=== PATIENT | female | born 1965 | race Caucasian/White ===

== ENCOUNTER 2019-10-17 23:53 | Emergency (ER) | payer MEDICAID ==
[~2019-10-17 23:53] MED LIST: DIVA500T52 PO; FLUD25I IM; HYDR50CA9 PO; QUET50TA15 PO
== END 2019-10-18 01:30 | disposition left against medical advice (07) ==
LOC: EMS 23:53
DX: Z11.59 Encounter for screening for other viral diseases (principal); Z53.21 Procedure and treatment not carried out due to patient leaving prior to being seen by health care provider

== ENCOUNTER 2019-10-20 18:01 | Inpatient (IN) | payer MEDICAID ==
[~2019-10-20] VITALS: Ht 160 cm; Wt 106.6 kg
[2019-10-20] MEDS ORDERED: LORazepam 2 MG/ML VIAL IM ONE (18:45)
[2019-10-20] MEDS ORDERED: HALOPERIDOL LACTATE 5 MG/ML VIAL IM ONE (18:45)
[2019-10-20] MEDS ORDERED: DiphenhydrAMINE HCL 50 MG/ML VIAL IM ONE (18:45)
[2019-10-20 20:25] LABS: BASOPHILS % (AUTO) 0.6 % (0.0-2.0); EOSINOPHILS % (AUTO) 3.5 % (1.0-6.0); HEMATOCRIT 35.1 % (36-46); HEMOGLOBIN 11.9 g/dL (12.0-16.0); MEAN CORPUSCULAR HGB CONC 33.9 G/dL (31.0-37.0); MEAN CORPUSCULAR VOLUME 86 fL (80-100); MONOCYTES # (AUTO) 0.7 K/uL (0.1-1.0); MONOCYTES % (AUTO) 7.1 % (2.0-9.0); NEUTROPHILS # (AUTO) 6.3 K/uL (1.8-7.7); NEUTROPHILS % (AUTO) 67.8 % (40.0-70.0); PLATELET COUNT (AUTO) 305 K/uL (150-450); RED CELL DISTRIBUTION WIDTH 13.8 % (11.5-14.5)
[2019-10-20 20:33] LABS: ANION GAP 12 mmol/L (8-16); CARBON DIOXIDE 24 mmol/L (22-29); CHLORIDE 108 mmol/L (98-107); CREATININE 0.78 mg/dL (0.60-1.30); GLOMERULAR FILTR. RATE CALC > 60 mL/min (>60); GLUCOSE,RANDOM 89 mg/dL (70-110); POTASSIUM 3.5 mmol/L (3.5-5.1); SODIUM SERUM 144 mmol/L (136-145); UREA NITROGEN, BLOOD 15 mg/dL (7-18)
[2019-10-20 20:39] LABS: ALANINE AMINOTRANSFERASE 30 U/L (12-78); ALBUMIN 4.3 g/dL (3.4-5.0); ALKALINE PHOSPHATASE 63 U/L (46-116); ASPARTATE AMINOTRANSFERASE 56 U/L (15-37); BILIRUBIN,TOTAL 0.5 mg/dL (0.1-1.0); CALCIUM, TOTAL 9.6 mg/dL (8.8-10.5); TOTAL PROTEIN, SERUM 7.5 g/dL (6.4-8.2)
[2019-10-20 22:29] LABS: THYROID STIMULATING HORMONE 4.35 uIU/mL (0.36-3.74)
[2019-10-21 00:25] VITALS: BP 115/60
[2019-10-21 08:13] VITALS: BP 110/59
[2019-10-21] MEDS ORDERED: NICOTINE 14 MG/24 HOUR PATCH TD PRN (08:15)
[2019-10-21] MEDS ORDERED: CloNIDine HCL 0.1 MG TABLET PO PRN (08:15)
[2019-10-21] MEDS ORDERED: DOCUSATE SODIUM 100 MG CAPSULE PO PRN (08:15)
[2019-10-21] MEDS ORDERED: ONDANSETRON HCL 4 MG TABLET PO PRN (08:15)
[2019-10-21] MEDS ORDERED: GuaiFENesin/D-METHORPHAN [SUGAR-FREE] 200-20MG/10 ML SYRUP UDCUP PO PRN (08:15)
[2019-10-21] MEDS ORDERED: PETROLATUM,WHITE 28 GM JELLY TP PRN (08:15)
[2019-10-21] MEDS ORDERED: MAGNESIUM HYDROXIDE SUSPENSION 30 ML UDCUP PO PRN (08:15)
[2019-10-21] MEDS ORDERED: LOPERAMIDE HCL 2 MG CAPSULE PO PRN (08:15)
[2019-10-21] MEDS ORDERED: ALBUTEROL SULFATE HFA 90 MCG/PUFF 8 GM INHALER IH PRN (08:15)
[2019-10-21] MEDS: BACITRACIN 28.4 GM OINTMENT TP SCH ×2 (08:22→17:00)
[2019-10-21 09:19] LABS: CHOL/HDL RATIO 3.5 (3.9-5.7)
[2019-10-21] MEDS: FluPHENAZine HCL 5 MG TABLET PO SCH ×2 (09:24→20:46)
[2019-10-21] MEDS: DIVALPROEX SODIUM 500 MG ER TABLET PO SCH ×2 (09:24→20:46)
[2019-10-21 21:13] VITALS: BP 111/65
[2019-10-22 02:41] VITALS: BP 101/62
[2019-10-22 08:11] VITALS: BP 112/61
[2019-10-22] MEDS: DIVALPROEX SODIUM 500 MG ER TABLET PO SCH ×2 (08:32→20:31)
[2019-10-22] MEDS: FluPHENAZine HCL 5 MG TABLET PO SCH ×2 (08:32→20:32)
[2019-10-22] MEDS: BACITRACIN 28.4 GM OINTMENT TP SCH ×2 (09:05→17:44)
[2019-10-22] MEDS: LORazepam 2 MG TABLET PO PRN (09:05)
[2019-10-22 16:15] VITALS: BP 117/79
[2019-10-22] MEDS: ACETAMINOPHEN 325 MG TABLET PO PRN (22:10)
[2019-10-23 05:48] VITALS: BP 113/62
[2019-10-23] MEDS: BACITRACIN 28.4 GM OINTMENT TP SCH ×2 (08:06→16:05)
[2019-10-23] MEDS: DIVALPROEX SODIUM 500 MG ER TABLET PO SCH ×2 (08:06→20:08)
[2019-10-23] MEDS: FluPHENAZine HCL 5 MG TABLET PO SCH ×2 (08:06→20:08)
[2019-10-23 08:11] VITALS: BP 108/50
[2019-10-23 16:58] VITALS: BP 150/88
[2019-10-23] MEDS: ZOLPIDEM TARTRATE 10 MG TABLET PO PRN (20:14)
[2019-10-24 05:42] VITALS: BP 121/61
[2019-10-24] MEDS: ACETAMINOPHEN 325 MG TABLET PO PRN (06:45)
[2019-10-24 08:13] VITALS: BP 116/71
[2019-10-24] MEDS: DIVALPROEX SODIUM 500 MG ER TABLET PO SCH ×2 (08:27→20:53)
[2019-10-24] MEDS: FluPHENAZine HCL 5 MG TABLET PO SCH ×2 (08:27→20:53)
[2019-10-24] MEDS: BACITRACIN 28.4 GM OINTMENT TP SCH ×2 (08:27→16:41)
[2019-10-24 16:40] VITALS: BP 130/74
[2019-10-24] MEDS: IBUPROFEN 400 MG TABLET PO PRN (17:28)
[2019-10-24] MEDS: MAG HYDROX/AL HYDROX/SIMETH ES 30 ML SUSPENSION UDCUP PO PRN (20:57)
[2019-10-25 03:51] VITALS: BP 120/68
[2019-10-25] MEDS: FluPHENAZine HCL 5 MG TABLET PO SCH ×2 (08:12→20:39)
[2019-10-25] MEDS: DIVALPROEX SODIUM 500 MG ER TABLET PO SCH ×2 (08:12→20:39)
[2019-10-25] MEDS: BACITRACIN 28.4 GM OINTMENT TP SCH ×2 (08:12→17:00)
[2019-10-25 08:20] VITALS: BP 113/69
[2019-10-25] MEDS: ZOLPIDEM TARTRATE 10 MG TABLET PO PRN (22:11)
[2019-10-26 03:40] VITALS: BP 105/66
[2019-10-26] MEDS: LORazepam 2 MG TABLET PO PRN (06:50)
[2019-10-26 08:21] VITALS: BP 152/84
[2019-10-26] MEDS: FluPHENAZine HCL 5 MG TABLET PO SCH ×2 (08:30→20:26)
[2019-10-26] MEDS: DIVALPROEX SODIUM 500 MG ER TABLET PO SCH ×2 (08:30→20:26)
[2019-10-26] MEDS: BACITRACIN 28.4 GM OINTMENT TP SCH ×2 (08:30→16:59)
[2019-10-26] MEDS: ACETAMINOPHEN 325 MG TABLET PO PRN (13:21)
[2019-10-26 16:08] VITALS: BP 126/74
[2019-10-26 17:55] VITALS: BP 118/70
[2019-10-26] MEDS: IBUPROFEN 400 MG TABLET PO PRN (17:55)
[2019-10-26] MEDS: ZOLPIDEM TARTRATE 10 MG TABLET PO PRN (22:33)
[2019-10-27 04:05] VITALS: BP 110/66
[2019-10-27] MEDS: LORazepam 2 MG TABLET PO PRN ×3 (06:46→15:54)
[2019-10-27 08:38] VITALS: BP 107/66
[2019-10-27] MEDS: DIVALPROEX SODIUM 500 MG ER TABLET PO SCH ×2 (09:18→20:20)
[2019-10-27] MEDS: FluPHENAZine HCL 5 MG TABLET PO SCH ×2 (09:18→20:20)
[2019-10-27] MEDS: BACITRACIN 28.4 GM OINTMENT TP SCH ×2 (09:18→16:26)
[2019-10-27] MEDS: MULTIVITAMINS WITH IRON TABLET PO SCH (09:18)
[2019-10-27] MEDS ORDERED: TUBERCULIN, PURIFIED PROTEIN DERIVATIVE 5 TU/0.1 ML SYRINGE ID ONE (11:30)
[2019-10-27 16:13] VITALS: BP 136/91
[2019-10-27] MEDS: HALOPERIDOL 5 MG TABLET PO PRN (18:13)
[2019-10-27] MEDS: ZOLPIDEM TARTRATE 10 MG TABLET PO PRN (20:20)
[2019-10-28 04:10] VITALS: BP 125/80
[2019-10-28] MEDS: DIVALPROEX SODIUM 500 MG ER TABLET PO SCH ×2 (08:07→20:13)
[2019-10-28] MEDS: MULTIVITAMINS WITH IRON TABLET PO SCH (08:07)
[2019-10-28] MEDS: BACITRACIN 28.4 GM OINTMENT TP SCH ×2 (08:07→16:08)
[2019-10-28] MEDS: LORazepam 2 MG TABLET PO PRN ×2 (08:07→15:45)
[2019-10-28] MEDS: FluPHENAZine HCL 5 MG TABLET PO SCH ×2 (08:07→20:13)
[2019-10-28 10:03] VITALS: BP 110/63
[2019-10-28 12:18] VITALS: BP 111/59
[2019-10-28] MEDS: ACETAMINOPHEN 325 MG TABLET PO PRN (12:18)
[2019-10-28] MEDS: HALOPERIDOL 5 MG TABLET PO PRN (12:18)
[2019-10-28 17:49] VITALS: BP 117/86
[2019-10-28] MEDS: ZOLPIDEM TARTRATE 10 MG TABLET PO PRN (20:17)
[2019-10-29 01:26] VITALS: BP 120/74
[2019-10-29] MEDS: FluPHENAZine HCL 5 MG TABLET PO SCH ×2 (08:09→20:01)
[2019-10-29] MEDS: MULTIVITAMINS WITH IRON TABLET PO SCH (08:10)
[2019-10-29] MEDS: BACITRACIN 28.4 GM OINTMENT TP SCH ×2 (08:10→15:59)
[2019-10-29] MEDS: DIVALPROEX SODIUM 500 MG ER TABLET PO SCH ×2 (08:10→20:02)
[2019-10-29 08:24] VITALS: BP 138/65
[2019-10-29] MEDS: LORazepam 2 MG TABLET PO PRN (14:45)
[2019-10-29] MEDS: HALOPERIDOL 5 MG TABLET PO PRN (15:58)
[2019-10-29 16:14] VITALS: BP 118/60
[2019-10-29] MEDS: ZOLPIDEM TARTRATE 10 MG TABLET PO PRN (22:25)
[2019-10-29] MEDS ORDERED: TUBERCULIN, PURIFIED PROTEIN DERIVATIVE 5 TU/0.1 ML SYRINGE ID ONE (22:30)
[2019-10-30 01:45] VITALS: BP 114/65
[2019-10-30] MEDS: MULTIVITAMINS WITH IRON TABLET PO SCH (08:19)
[2019-10-30] MEDS: FluPHENAZine HCL 5 MG TABLET PO SCH ×2 (08:19→20:55)
[2019-10-30] MEDS: DIVALPROEX SODIUM 500 MG ER TABLET PO SCH ×2 (08:19→20:55)
[2019-10-30] MEDS: BACITRACIN 28.4 GM OINTMENT TP SCH ×2 (08:19→17:00)
[2019-10-30 08:25] VITALS: BP 144/87
[2019-10-30] MEDS: MAG HYDROX/AL HYDROX/SIMETH ES 30 ML SUSPENSION UDCUP PO PRN (14:44)
[2019-10-30 16:21] VITALS: BP 141/77
[2019-10-30] MEDS: ZOLPIDEM TARTRATE 10 MG TABLET PO PRN (20:55)
[2019-10-31 03:56] VITALS: BP 135/78
[2019-10-31] MEDS: ACETAMINOPHEN 325 MG TABLET PO PRN (04:53)
[2019-10-31 04:54] VITALS: BP 148/78
[2019-10-31] MEDS: LORazepam 2 MG TABLET PO PRN ×2 (04:54→16:58)
[2019-10-31] MEDS: BACITRACIN 28.4 GM OINTMENT TP SCH ×2 (10:09→16:30)
[2019-10-31] MEDS: FluPHENAZine HCL 5 MG TABLET PO SCH ×2 (10:09→20:35)
[2019-10-31] MEDS: MULTIVITAMINS WITH IRON TABLET PO SCH (10:09)
[2019-10-31] MEDS: DIVALPROEX SODIUM 500 MG ER TABLET PO SCH ×2 (10:09→20:35)
[2019-10-31 16:24] VITALS: BP 109/71
[2019-11-01 03:00] VITALS: BP 110/70
[2019-11-01] MEDS: LORazepam 2 MG TABLET PO PRN ×2 (03:05→12:15)
[2019-11-01] MEDS: FluPHENAZine HCL 5 MG TABLET PO SCH ×2 (08:37→21:09)
[2019-11-01] MEDS: MULTIVITAMINS WITH IRON TABLET PO SCH (08:37)
[2019-11-01] MEDS: DIVALPROEX SODIUM 500 MG ER TABLET PO SCH ×2 (08:37→21:09)
[2019-11-01] MEDS: BACITRACIN 28.4 GM OINTMENT TP SCH ×2 (08:38→17:00)
[2019-11-02 04:47] VITALS: BP 108/70
[2019-11-02] MEDS: ACETAMINOPHEN 325 MG TABLET PO PRN (05:35)
[2019-11-02] MEDS: DIVALPROEX SODIUM 500 MG ER TABLET PO SCH ×2 (08:10→21:05)
[2019-11-02] MEDS: MULTIVITAMINS WITH IRON TABLET PO SCH (08:10)
[2019-11-02] MEDS: FluPHENAZine HCL 5 MG TABLET PO SCH ×2 (08:10→21:05)
[2019-11-02] MEDS: BACITRACIN 28.4 GM OINTMENT TP SCH ×2 (08:10→16:59)
[2019-11-02 16:13] VITALS: BP 124/66
[2019-11-03 02:13] VITALS: BP 118/65
[2019-11-03] MEDS: FluPHENAZine HCL 5 MG TABLET PO SCH ×2 (08:57→20:43)
[2019-11-03] MEDS: MULTIVITAMINS WITH IRON TABLET PO SCH (08:57)
[2019-11-03] MEDS: DIVALPROEX SODIUM 500 MG ER TABLET PO SCH ×2 (08:57→20:43)
[2019-11-03] MEDS: BACITRACIN 28.4 GM OINTMENT TP SCH ×2 (08:57→17:29)
[2019-11-03] MEDS: IBUPROFEN 400 MG TABLET PO PRN ×2 (12:05→21:06)
[2019-11-03] MEDS: LORazepam 2 MG TABLET PO PRN (14:29)
[2019-11-03 16:21] VITALS: BP 126/74
[2019-11-03] MEDS: ZOLPIDEM TARTRATE 10 MG TABLET PO PRN (22:12)
[2019-11-04 01:53] VITALS: BP 122/67
[2019-11-04] MEDS: BACITRACIN 28.4 GM OINTMENT TP SCH ×2 (08:31→16:32)
[2019-11-04] MEDS: FluPHENAZine HCL 5 MG TABLET PO SCH ×2 (08:32→20:29)
[2019-11-04] MEDS: DIVALPROEX SODIUM 500 MG ER TABLET PO SCH ×2 (08:32→20:29)
[2019-11-04] MEDS: MULTIVITAMINS WITH IRON TABLET PO SCH (08:32)
[2019-11-04 09:25] VITALS: BP 118/80
[2019-11-04] MEDS: IBUPROFEN 400 MG TABLET PO PRN ×2 (09:25→18:32)
[2019-11-04] MEDS: LORazepam 2 MG TABLET PO PRN ×2 (10:28→17:08)
[2019-11-04 16:33] VITALS: BP 123/74
[2019-11-04 18:32] VITALS: BP 128/70
[2019-11-04] MEDS: ZOLPIDEM TARTRATE 10 MG TABLET PO PRN (20:29)
[2019-11-05] MEDS: LORazepam 2 MG TABLET PO PRN ×3 (02:08→19:23)
[2019-11-05 04:50] VITALS: BP 105/65
[2019-11-05 08:13] VITALS: BP 104/64
[2019-11-05] MEDS: DIVALPROEX SODIUM 500 MG ER TABLET PO SCH ×2 (08:18→20:47)
[2019-11-05] MEDS: MULTIVITAMINS WITH IRON TABLET PO SCH (08:18)
[2019-11-05] MEDS: FluPHENAZine HCL 5 MG TABLET PO SCH ×2 (08:18→20:47)
[2019-11-05] MEDS: BACITRACIN 28.4 GM OINTMENT TP SCH ×2 (08:22→17:03)
[2019-11-05] MEDS: IBUPROFEN 400 MG TABLET PO PRN ×2 (08:52→17:28)
[2019-11-05] MEDS: MAG HYDROX/AL HYDROX/SIMETH ES 30 ML SUSPENSION UDCUP PO PRN (08:53)
[2019-11-05 16:08] VITALS: BP 114/55
[2019-11-05 17:42] VITALS: BP 109/68
[2019-11-05] MEDS: HALOPERIDOL 5 MG TABLET PO PRN (19:23)
[2019-11-06 03:35] VITALS: BP 109/58
[2019-11-06 08:11] VITALS: BP 100/59
[2019-11-06] MEDS: DIVALPROEX SODIUM 500 MG ER TABLET PO SCH ×2 (08:29→20:33)
[2019-11-06] MEDS: FluPHENAZine HCL 5 MG TABLET PO SCH ×2 (08:29→20:33)
[2019-11-06] MEDS: MULTIVITAMINS WITH IRON TABLET PO SCH (08:31)
[2019-11-06] MEDS: BACITRACIN 28.4 GM OINTMENT TP SCH ×2 (08:35→16:31)
[2019-11-06 16:07] VITALS: BP 141/71
[2019-11-06 17:23] VITALS: BP 122/76
[2019-11-06] MEDS: IBUPROFEN 400 MG TABLET PO PRN (17:23)
[2019-11-06] MEDS: HALOPERIDOL 5 MG TABLET PO PRN (19:31)
[2019-11-06] MEDS: LORazepam 2 MG TABLET PO PRN (19:31)
[2019-11-07 05:51] VITALS: BP 127/70
[2019-11-07 08:19] VITALS: BP 119/70
[2019-11-07] MEDS: BACITRACIN 28.4 GM OINTMENT TP SCH ×2 (09:00→17:00)
[2019-11-07] MEDS: FluPHENAZine HCL 5 MG TABLET PO SCH ×2 (09:39→20:33)
[2019-11-07] MEDS: MULTIVITAMINS WITH IRON TABLET PO SCH (09:39)
[2019-11-07] MEDS: DIVALPROEX SODIUM 500 MG ER TABLET PO SCH ×2 (09:39→20:32)
[2019-11-07] MEDS: IBUPROFEN 400 MG TABLET PO PRN ×2 (12:13→20:33)
[2019-11-07] MEDS: LORazepam 2 MG TABLET PO PRN (12:13)
[2019-11-07] MEDS: HALOPERIDOL 5 MG TABLET PO PRN (12:30)
[2019-11-07 16:18] VITALS: BP 105/63
[2019-11-07] MEDS: MAG HYDROX/AL HYDROX/SIMETH ES 30 ML SUSPENSION UDCUP PO PRN (18:50)
[2019-11-07] MEDS: ACETAMINOPHEN 325 MG TABLET PO PRN (18:51)
[2019-11-07] MEDS: ZOLPIDEM TARTRATE 10 MG TABLET PO PRN (20:33)
[2019-11-08 01:38] VITALS: BP 117/78
[2019-11-08] MEDS: IBUPROFEN 400 MG TABLET PO PRN ×2 (06:39→20:11)
[2019-11-08] MEDS: DIVALPROEX SODIUM 500 MG ER TABLET PO SCH ×2 (08:17→20:11)
[2019-11-08] MEDS: MULTIVITAMINS WITH IRON TABLET PO SCH (08:17)
[2019-11-08] MEDS: FluPHENAZine HCL 5 MG TABLET PO SCH ×2 (08:17→20:11)
[2019-11-08] MEDS: BACITRACIN 28.4 GM OINTMENT TP SCH ×2 (08:18→16:29)
[2019-11-08] MEDS: LORazepam 2 MG TABLET PO PRN (12:02)
[2019-11-08] MEDS: MAG HYDROX/AL HYDROX/SIMETH ES 30 ML SUSPENSION UDCUP PO PRN (13:42)
[2019-11-08] MEDS: HALOPERIDOL 5 MG TABLET PO PRN (14:10)
[2019-11-08 16:26] VITALS: BP 137/82
[2019-11-09 02:20] VITALS: BP 124/66
[2019-11-09 08:06] VITALS: BP 117/74
[2019-11-09] MEDS: LORazepam 2 MG TABLET PO PRN ×2 (08:06→17:16)
[2019-11-09] MEDS: IBUPROFEN 400 MG TABLET PO PRN ×2 (08:06→16:43)
[2019-11-09] MEDS: FluPHENAZine HCL 5 MG TABLET PO SCH ×2 (08:06→20:32)
[2019-11-09] MEDS: DIVALPROEX SODIUM 500 MG ER TABLET PO SCH ×2 (08:07→20:32)
[2019-11-09] MEDS: BACITRACIN 28.4 GM OINTMENT TP SCH ×2 (08:07→16:50)
[2019-11-09] MEDS: MULTIVITAMINS WITH IRON TABLET PO SCH (08:07)
[2019-11-09 08:23] VITALS: BP 117/74
[2019-11-09] MEDS: HALOPERIDOL 5 MG TABLET PO PRN ×2 (08:59→17:16)
[2019-11-09 16:43] VITALS: BP 105/63
[2019-11-09 16:53] VITALS: BP 105/63
[2019-11-09] MEDS: MAG HYDROX/AL HYDROX/SIMETH ES 30 ML SUSPENSION UDCUP PO PRN (18:42)
[2019-11-10 04:35] VITALS: BP 100/68
[2019-11-10] MEDS: FluPHENAZine HCL 5 MG TABLET PO SCH (08:05)
[2019-11-10] MEDS: DIVALPROEX SODIUM 500 MG ER TABLET PO SCH (08:05)
[2019-11-10] MEDS: MULTIVITAMINS WITH IRON TABLET PO SCH (08:05)
[2019-11-10 08:07] VITALS: BP 102/68
[2019-11-10] MEDS ORDERED: DIVA500T52 PO (13:42)
[2019-11-10] MEDS ORDERED: FLUP5 PO (13:43)
== END 2019-11-10 15:00 | disposition home or self-care (01) | DRG 750 ==
LOC: EMS 18:01 → B3A 19:48
PROVIDERS: ADMIT Psychiatry & Neurology Child & Adolescent Psychiatry; ATTEND Psychiatry & Neurology Child & Adolescent Psychiatry
DX: F20.0 Paranoid schizophrenia (principal); Z78.1 Physical restraint status; G40.909 Epilepsy, unspecified, not intractable, without status epilepticus; D64.9 Anemia, unspecified; E03.9 Hypothyroidism, unspecified; E78.00 Pure hypercholesterolemia, unspecified; E78.5 Hyperlipidemia, unspecified; F10.10 Alcohol abuse, uncomplicated; F43.10 Post-traumatic stress disorder, unspecified; F17.210 Nicotine dependence, cigarettes, uncomplicated; I10 Essential (primary) hypertension; Z59.0 Homelessness; Z91.5 Personal history of self-harm
CPT/HCPCS: 84439; 84443; G0480; J1200; J1630; J2060

== ENCOUNTER 2019-10-21 12:57 | Emergency (ER) | payer MEDICAID ==
[~2019-10-21] VITALS: Ht 162.6 cm; Wt 102.3 kg
[2019-10-21 17:58] VITALS: BP 111/62
== END 2019-10-21 19:55 | disposition home or self-care (01) ==
LOC: EMS 13:05
DX: F20.0 Paranoid schizophrenia (principal); R05 Cough; F32.9 Major depressive disorder, single episode, unspecified; E78.00 Pure hypercholesterolemia, unspecified; I10 Essential (primary) hypertension; F17.210 Nicotine dependence, cigarettes, uncomplicated; F14.90 Cocaine use, unspecified, uncomplicated; F12.90 Cannabis use, unspecified, uncomplicated; F19.90 Other psychoactive substance use, unspecified, uncomplicated; Z20.828 Contact with and (suspected) exposure to other viral communicable diseases

== ENCOUNTER 2019-11-14 00:57 | Inpatient (IN) | payer MEDICAID ==
[~2019-11-14] VITALS: Ht 162.6 cm; Wt 108.4 kg
[~2019-11-14 00:57] MED LIST changes: +DIVA-80 PO; -DIVA500T52 PO; -FLUD25I IM; +FLUP5 PO; -HYDR50CA9 PO; -QUET50TA15 PO
[2019-11-14 01:55] LABS: BASOPHILS % (AUTO) 0.3 % (0.0-2.0); EOSINOPHILS % (AUTO) 0.9 % (1.0-6.0); HEMATOCRIT 38.8 % (36-46); HEMOGLOBIN 13.3 g/dL (12.0-16.0); LYMPHOCYTES # (AUTO) 1.2 K/uL (1.0-4.8); LYMPHOCYTES % (AUTO) 13.4 % (22.0-44.0); MEAN CORPUSCULAR HEMOGLOBIN 29.2 pg (26.0-34.0); MEAN CORPUSCULAR HGB CONC 34.2 G/dL (31.0-37.0); MEAN CORPUSCULAR VOLUME 86 fL (80-100); NEUTROPHILS # (AUTO) 6.6 K/uL (1.8-7.7); NEUTROPHILS % (AUTO) 74.4 % (40.0-70.0); PLATELET COUNT (AUTO) 276 K/uL (150-450); RED BLOOD CELL COUNT(AUTO) 4.54 MIL/uL (4.00-5.20); RED CELL DISTRIBUTION WIDTH 13.7 % (11.5-14.5)
[2019-11-14 02:04] LABS: ANION GAP 9 mmol/L (8-16); CALCIUM, TOTAL 10.1 mg/dL (8.8-10.5); CARBON DIOXIDE 31 mmol/L (22-29); CHLORIDE 107 mmol/L (98-107); CREATININE 0.65 mg/dL (0.60-1.30); GLOMERULAR FILTR. RATE CALC > 60 mL/min (>60); GLUCOSE,RANDOM 116 mg/dL (70-110); POTASSIUM 4.9 mmol/L (3.5-5.1); SODIUM SERUM 147 mmol/L (136-145); UREA NITROGEN, BLOOD 16 mg/dL (7-18)
[2019-11-14 02:11] LABS: ALANINE AMINOTRANSFERASE 26 U/L (12-78); ALBUMIN 4.4 g/dL (3.4-5.0); ALKALINE PHOSPHATASE 60 U/L (46-116); ASPARTATE AMINOTRANSFERASE 30 U/L (15-37); BILIRUBIN,TOTAL 0.4 mg/dL (0.1-1.0); TOTAL PROTEIN, SERUM 8.1 g/dL (6.4-8.2)
[2019-11-14 05:23] VITALS: BP 114/65
[2019-11-14 08:35] VITALS: BP 118/73
[2019-11-14] MEDS: DIVALPROEX SODIUM 500 MG ER TABLET PO SCH ×2 (10:43→20:54)
[2019-11-14] MEDS: FluPHENAZine HCL 5 MG TABLET PO SCH ×2 (11:30→20:55)
[2019-11-14 16:12] VITALS: BP 125/84
[2019-11-14] MEDS: LORazepam 2 MG TABLET PO PRN (16:28)
[2019-11-14] MEDS: HALOPERIDOL 5 MG TABLET PO PRN (16:28)
[2019-11-15 01:52] VITALS: BP 114/74
[2019-11-15] MEDS: IBUPROFEN 600 MG TABLET PO PRN ×3 (06:34→21:55)
[2019-11-15 07:34] VITALS: BP 105/76
[2019-11-15 08:12] VITALS: BP 102/79
[2019-11-15] MEDS: FluPHENAZine HCL 5 MG TABLET PO SCH ×2 (08:12→20:32)
[2019-11-15] MEDS: LORazepam 2 MG TABLET PO PRN (08:12)
[2019-11-15] MEDS: DIVALPROEX SODIUM 500 MG ER TABLET PO SCH ×2 (08:13→20:32)
[2019-11-15 08:23] LABS: CHOL/HDL RATIO 4.9 (3.9-5.7)
[2019-11-15] MEDS: HALOPERIDOL 5 MG TABLET PO PRN (10:54)
[2019-11-15 14:08] VITALS: BP 110/72
[2019-11-15 15:08] VITALS: BP 111/76
[2019-11-15 16:18] VITALS: BP 119/78
[2019-11-15] MEDS: ZOLPIDEM TARTRATE 10 MG TABLET PO PRN (23:10)
[2019-11-16 02:22] VITALS: BP 103/51
[2019-11-16] MEDS: ACETAMINOPHEN 325 MG TABLET PO PRN (02:55)
[2019-11-16] MEDS: FluPHENAZine HCL 5 MG TABLET PO SCH ×2 (08:20→20:13)
[2019-11-16] MEDS: DIVALPROEX SODIUM 500 MG ER TABLET PO SCH ×2 (08:20→20:13)
[2019-11-16] MEDS: HALOPERIDOL 5 MG TABLET PO PRN (16:14)
[2019-11-16] MEDS: LORazepam 2 MG TABLET PO PRN (16:14)
[2019-11-16 16:16] VITALS: BP 121/65
[2019-11-16 17:17] VITALS: BP 133/70
[2019-11-16] MEDS: IBUPROFEN 600 MG TABLET PO PRN (17:17)
[2019-11-17 01:42] VITALS: BP 110/68
[2019-11-17] MEDS: ZOLPIDEM TARTRATE 10 MG TABLET PO PRN ×2 (01:51→22:35)
[2019-11-17] MEDS: ACETAMINOPHEN 325 MG TABLET PO PRN ×2 (07:16→17:53)
[2019-11-17] MEDS: FluPHENAZine HCL 5 MG TABLET PO SCH ×2 (08:18→20:41)
[2019-11-17] MEDS: DIVALPROEX SODIUM 500 MG ER TABLET PO SCH ×2 (08:18→20:41)
[2019-11-17 08:21] VITALS: BP 124/58
[2019-11-17] MEDS: LORazepam 2 MG TABLET PO PRN ×2 (10:09→17:08)
[2019-11-17] MEDS: NICOTINE 21 MG/24 HOUR PATCH TD SCH (11:06)
[2019-11-17 16:09] VITALS: BP 120/74
[2019-11-17] MEDS: HALOPERIDOL 5 MG TABLET PO PRN (17:08)
[2019-11-17 17:53] VITALS: BP 146/77
[2019-11-18 04:35] VITALS: BP 100/60
[2019-11-18 05:07] VITALS: BP 116/68
[2019-11-18] MEDS: LORazepam 2 MG TABLET PO PRN ×2 (05:07→13:25)
[2019-11-18] MEDS: HALOPERIDOL 5 MG TABLET PO PRN ×2 (05:07→12:29)
[2019-11-18 08:18] VITALS: BP 91/58
[2019-11-18] MEDS: FluPHENAZine HCL 5 MG TABLET PO SCH ×2 (09:29→20:40)
[2019-11-18] MEDS: DIVALPROEX SODIUM 500 MG ER TABLET PO SCH ×2 (09:29→20:40)
[2019-11-18] MEDS: NICOTINE 21 MG/24 HOUR PATCH TD SCH (09:30)
[2019-11-18 13:00] VITALS: BP 114/74
[2019-11-18 16:04] VITALS: BP 104/60
[2019-11-19 02:34] VITALS: BP 126/89
[2019-11-19] MEDS: ZOLPIDEM TARTRATE 10 MG TABLET PO PRN (02:46)
[2019-11-19] MEDS: LORazepam 2 MG TABLET PO PRN (02:46)
[2019-11-19] MEDS: DIVALPROEX SODIUM 500 MG ER TABLET PO SCH ×2 (08:16→20:24)
[2019-11-19] MEDS: NICOTINE 21 MG/24 HOUR PATCH TD SCH (08:16)
[2019-11-19] MEDS: FluPHENAZine HCL 5 MG TABLET PO SCH ×2 (08:16→20:25)
[2019-11-19 08:39] VITALS: BP 122/68
[2019-11-20 02:11] VITALS: BP 125/74
[2019-11-20] MEDS: FluPHENAZine HCL 5 MG TABLET PO SCH ×2 (08:08→20:29)
[2019-11-20] MEDS: DIVALPROEX SODIUM 500 MG ER TABLET PO SCH ×2 (08:08→20:29)
[2019-11-20] MEDS: NICOTINE 21 MG/24 HOUR PATCH TD SCH (09:00)
[2019-11-20 09:41] VITALS: BP 104/57
[2019-11-20 16:00] VITALS: BP 124/70
[2019-11-20] MEDS: HALOPERIDOL 5 MG TABLET PO PRN (16:27)
[2019-11-20] MEDS: LORazepam 2 MG TABLET PO PRN (16:27)
[2019-11-21 03:59] VITALS: BP 126/76
[2019-11-21 08:04] VITALS: BP 130/79
[2019-11-21] MEDS: LORazepam 2 MG TABLET PO PRN ×2 (08:06→13:23)
[2019-11-21] MEDS: NICOTINE 21 MG/24 HOUR PATCH TD SCH (08:06)
[2019-11-21] MEDS: FluPHENAZine HCL 5 MG TABLET PO SCH ×2 (08:06→20:19)
[2019-11-21] MEDS: DIVALPROEX SODIUM 500 MG ER TABLET PO SCH ×2 (08:06→20:19)
[2019-11-21] MEDS: HALOPERIDOL 5 MG TABLET PO PRN ×2 (09:23→17:06)
[2019-11-21] MEDS: IBUPROFEN 600 MG TABLET PO PRN (09:51)
[2019-11-21 16:35] VITALS: BP 126/76
[2019-11-21] MEDS: ACETAMINOPHEN 325 MG TABLET PO PRN (19:07)
[2019-11-21] MEDS: ZOLPIDEM TARTRATE 10 MG TABLET PO PRN (21:12)
[2019-11-22] MEDS: ACETAMINOPHEN 325 MG TABLET PO PRN (04:38)
[2019-11-22 04:42] VITALS: BP 101/73
[2019-11-22] MEDS: HALOPERIDOL 5 MG TABLET PO PRN ×3 (06:01→17:28)
[2019-11-22] MEDS: FluPHENAZine HCL 5 MG TABLET PO SCH ×2 (08:06→20:28)
[2019-11-22] MEDS: LORazepam 2 MG TABLET PO PRN ×2 (08:06→16:30)
[2019-11-22] MEDS: DIVALPROEX SODIUM 500 MG ER TABLET PO SCH ×2 (08:06→20:28)
[2019-11-22] MEDS: NICOTINE 21 MG/24 HOUR PATCH TD SCH (08:06)
[2019-11-22 08:17] VITALS: BP 102/70
[2019-11-22 16:25] VITALS: BP 128/94
[2019-11-23 04:00] VITALS: BP 126/72
[2019-11-23 08:11] LABS: ANION GAP 9 mmol/L (8-16); CALCIUM, TOTAL 9.4 mg/dL (8.8-10.5); CARBON DIOXIDE 27 mmol/L (22-29); CHLORIDE 104 mmol/L (98-107); CREATININE 0.77 mg/dL (0.60-1.30); GLOMERULAR FILTR. RATE CALC > 60 mL/min (>60); GLUCOSE,RANDOM 83 mg/dL (70-110); POTASSIUM 4.1 mmol/L (3.5-5.1); SODIUM SERUM 140 mmol/L (136-145); UREA NITROGEN, BLOOD 16 mg/dL (7-18)
[2019-11-23 08:17] VITALS: BP 127/75
[2019-11-23] MEDS: FluPHENAZine HCL 5 MG TABLET PO SCH ×2 (08:17→21:35)
[2019-11-23] MEDS: LORazepam 2 MG TABLET PO PRN (08:17)
[2019-11-23] MEDS: NICOTINE 21 MG/24 HOUR PATCH TD SCH (08:17)
[2019-11-23] MEDS: DIVALPROEX SODIUM 500 MG ER TABLET PO SCH ×2 (08:17→21:37)
[2019-11-23] MEDS: HALOPERIDOL 5 MG TABLET PO PRN (14:23)
[2019-11-23] MEDS: IBUPROFEN 600 MG TABLET PO PRN (15:00)
[2019-11-23 16:07] VITALS: BP 122/74
[2019-11-24] MEDS: LORazepam 2 MG TABLET PO PRN ×3 (03:09→17:27)
[2019-11-24 03:29] VITALS: BP 106/65
[2019-11-24 05:26] VITALS: BP 106/65
[2019-11-24 08:46] VITALS: BP 118/58
[2019-11-24] MEDS: FluPHENAZine HCL 5 MG TABLET PO SCH ×2 (09:13→20:09)
[2019-11-24] MEDS: DIVALPROEX SODIUM 500 MG ER TABLET PO SCH ×2 (09:13→20:09)
[2019-11-24] MEDS: HALOPERIDOL 5 MG TABLET PO PRN (09:13)
[2019-11-24] MEDS: NICOTINE 21 MG/24 HOUR PATCH TD SCH (09:13)
[2019-11-24] MEDS: IBUPROFEN 600 MG TABLET PO PRN (09:13)
[2019-11-24] MEDS ORDERED: HALOPERIDOL LACTATE 5 MG/ML VIAL IM ONE (10:00)
[2019-11-24] MEDS ORDERED: LORazepam 2 MG/ML VIAL IM ONE (10:00)
[2019-11-24] MEDS ORDERED: DiphenhydrAMINE HCL 50 MG/ML VIAL IM ONE (10:00)
[2019-11-24 17:52] VITALS: BP 103/64
[2019-11-25 05:10] VITALS: BP 116/66
[2019-11-25 07:21] VITALS: BP 122/67
[2019-11-25] MEDS: IBUPROFEN 600 MG TABLET PO PRN (07:30)
[2019-11-25] MEDS: DIVALPROEX SODIUM 500 MG ER TABLET PO SCH ×2 (08:11→20:35)
[2019-11-25] MEDS: LORazepam 2 MG TABLET PO PRN ×2 (08:11→17:08)
[2019-11-25] MEDS: FluPHENAZine HCL 5 MG TABLET PO SCH ×2 (08:11→20:35)
[2019-11-25] MEDS: NICOTINE 21 MG/24 HOUR PATCH TD SCH (08:11)
[2019-11-25 08:18] VITALS: BP 121/69
[2019-11-25 16:00] VITALS: BP 123/77
[2019-11-25] MEDS: HALOPERIDOL 5 MG TABLET PO PRN (17:08)
[2019-11-25] MEDS: ZOLPIDEM TARTRATE 10 MG TABLET PO PRN (20:35)
[2019-11-26 04:18] VITALS: BP 121/64
[2019-11-26 06:44] VITALS: BP 101/71
[2019-11-26] MEDS: IBUPROFEN 600 MG TABLET PO PRN (06:47)
[2019-11-26 07:18] VITALS: BP 105/66
[2019-11-26] MEDS: FluPHENAZine HCL 5 MG TABLET PO SCH ×2 (08:29→20:39)
[2019-11-26] MEDS: DIVALPROEX SODIUM 500 MG ER TABLET PO SCH ×2 (08:29→20:39)
[2019-11-26] MEDS: NICOTINE 21 MG/24 HOUR PATCH TD SCH (08:30)
[2019-11-26] MEDS: ACETAMINOPHEN 325 MG TABLET PO PRN (14:12)
[2019-11-26 16:27] VITALS: BP 135/79
[2019-11-26] MEDS: LORazepam 2 MG TABLET PO PRN ×2 (16:45→22:12)
[2019-11-26] MEDS: ZOLPIDEM TARTRATE 10 MG TABLET PO PRN (20:39)
[2019-11-27] VITALS: BP 105/69
[2019-11-27 06:35] VITALS: BP 110/74
[2019-11-27] MEDS: IBUPROFEN 600 MG TABLET PO PRN (06:38)
[2019-11-27] MEDS: LORazepam 2 MG TABLET PO PRN (06:38)
[2019-11-27 08:14] VITALS: BP 134/64
[2019-11-27] MEDS: NICOTINE 21 MG/24 HOUR PATCH TD SCH (09:31)
[2019-11-27] MEDS: DIVALPROEX SODIUM 500 MG ER TABLET PO SCH ×2 (09:31→20:41)
[2019-11-27] MEDS: FluPHENAZine HCL 5 MG TABLET PO SCH ×2 (09:37→20:41)
[2019-11-27] MEDS: HALOPERIDOL 5 MG TABLET PO PRN (11:52)
[2019-11-27] MEDS: ACETAMINOPHEN 325 MG TABLET PO PRN (11:52)
[2019-11-27 16:30] VITALS: BP 105/68
[2019-11-28] MEDS: ZOLPIDEM TARTRATE 10 MG TABLET PO PRN (02:54)
[2019-11-28 05:01] VITALS: BP 119/76
[2019-11-28] MEDS: NICOTINE 21 MG/24 HOUR PATCH TD SCH (07:59)
[2019-11-28] MEDS: LORazepam 2 MG TABLET PO PRN ×2 (07:59→16:24)
[2019-11-28] MEDS: DIVALPROEX SODIUM 500 MG ER TABLET PO SCH ×2 (07:59→20:23)
[2019-11-28] MEDS: FluPHENAZine HCL 5 MG TABLET PO SCH ×2 (07:59→20:23)
[2019-11-28 08:00] VITALS: BP 119/72
[2019-11-28] MEDS: ACETAMINOPHEN 325 MG TABLET PO PRN (08:00)
[2019-11-28 08:15] VITALS: BP 119/72
[2019-11-28] MEDS: HALOPERIDOL 5 MG TABLET PO PRN ×2 (10:07→16:24)
[2019-11-28] MEDS ORDERED: LORazepam 2 MG/ML VIAL ONE (10:52)
[2019-11-28] MEDS ORDERED: HALOPERIDOL LACTATE 5 MG/ML VIAL ONE (10:52)
[2019-11-28] MEDS ORDERED: DiphenhydrAMINE HCL 50 MG/ML VIAL ONE (10:52)
[2019-11-28] MEDS ORDERED: LORazepam 2 MG/ML VIAL IM ONE ×2 (11:00→11:30)
[2019-11-28] MEDS ORDERED: HALOPERIDOL LACTATE 5 MG/ML VIAL IM ONE ×2 (11:00→11:30)
[2019-11-28] MEDS ORDERED: DiphenhydrAMINE HCL 50 MG/ML VIAL IM ONE ×2 (11:00→11:30)
[2019-11-28 16:24] VITALS: BP 101/60
[2019-11-29 05:29] VITALS: BP 120/61
[2019-11-29 08:10] VITALS: BP 109/66
[2019-11-29] MEDS: NICOTINE 21 MG/24 HOUR PATCH TD SCH (08:19)
[2019-11-29] MEDS: DIVALPROEX SODIUM 500 MG ER TABLET PO SCH ×2 (08:19→20:23)
[2019-11-29] MEDS: FluPHENAZine HCL 5 MG TABLET PO SCH ×2 (08:19→20:23)
[2019-11-29] MEDS: ACETAMINOPHEN 325 MG TABLET PO PRN (08:24)
[2019-11-29] MEDS: LORazepam 2 MG TABLET PO PRN ×2 (11:01→16:32)
[2019-11-29 12:50] VITALS: BP 126/73
[2019-11-29] MEDS: HALOPERIDOL 5 MG TABLET PO PRN (16:32)
[2019-11-29 17:49] VITALS: BP 120/70
[2019-11-30] MEDS: ACETAMINOPHEN 325 MG TABLET PO PRN (01:32)
[2019-11-30] MEDS: ZOLPIDEM TARTRATE 10 MG TABLET PO PRN (01:32)
[2019-11-30 01:33] VITALS: BP 100/52
[2019-11-30 08:09] VITALS: BP 105/55
[2019-11-30] MEDS: DIVALPROEX SODIUM 500 MG ER TABLET PO SCH ×2 (08:10→20:39)
[2019-11-30] MEDS: FluPHENAZine HCL 5 MG TABLET PO SCH ×2 (08:10→20:39)
[2019-11-30] MEDS: NICOTINE 21 MG/24 HOUR PATCH TD SCH (08:10)
[2019-11-30] MEDS: IBUPROFEN 600 MG TABLET PO PRN ×2 (08:42→16:51)
[2019-11-30] MEDS: LORazepam 2 MG TABLET PO PRN ×2 (09:53→16:19)
[2019-11-30] MEDS: HALOPERIDOL 5 MG TABLET PO PRN (10:32)
[2019-11-30 16:17] VITALS: BP 131/85
[2019-12-01 02:11] VITALS: BP 122/80
[2019-12-01] MEDS: LORazepam 2 MG TABLET PO PRN ×2 (04:36→13:14)
[2019-12-01 08:04] VITALS: BP 119/78
[2019-12-01] MEDS: FluPHENAZine HCL 5 MG TABLET PO SCH ×2 (09:40→20:19)
[2019-12-01] MEDS: DIVALPROEX SODIUM 500 MG ER TABLET PO SCH ×2 (09:40→20:19)
[2019-12-01] MEDS: NICOTINE 21 MG/24 HOUR PATCH TD SCH (09:41)
[2019-12-01] MEDS: ACETAMINOPHEN 325 MG TABLET PO PRN (10:50)
[2019-12-01] MEDS: HALOPERIDOL 5 MG TABLET PO PRN (13:14)
[2019-12-01] MEDS: IBUPROFEN 600 MG TABLET PO PRN (15:39)
[2019-12-01 16:16] VITALS: BP 119/71
[2019-12-01] MEDS: ZOLPIDEM TARTRATE 10 MG TABLET PO PRN (23:00)
[2019-12-02 04:38] VITALS: BP 114/78
[2019-12-02 08:15] VITALS: BP 114/58
[2019-12-02] MEDS: NICOTINE 21 MG/24 HOUR PATCH TD SCH (08:16)
[2019-12-02] MEDS: DIVALPROEX SODIUM 500 MG ER TABLET PO SCH ×2 (08:16→19:57)
[2019-12-02] MEDS: FluPHENAZine HCL 5 MG TABLET PO SCH ×2 (08:16→19:57)
[2019-12-02] MEDS: ACETAMINOPHEN 325 MG TABLET PO PRN ×2 (08:18→16:31)
[2019-12-02 16:55] VITALS: BP 140/84
[2019-12-02] MEDS: LORazepam 2 MG TABLET PO PRN (17:12)
[2019-12-02] MEDS: ZOLPIDEM TARTRATE 10 MG TABLET PO PRN (20:39)
[2019-12-03] MEDS: LORazepam 2 MG TABLET PO PRN (04:34)
[2019-12-03 04:47] VITALS: BP 132/81
[2019-12-03] MEDS: FluPHENAZine HCL 5 MG TABLET PO SCH ×2 (08:17→20:43)
[2019-12-03] MEDS: DIVALPROEX SODIUM 500 MG ER TABLET PO SCH ×2 (08:17→20:43)
[2019-12-03] MEDS: NICOTINE 21 MG/24 HOUR PATCH TD SCH (08:30)
[2019-12-03] MEDS: IBUPROFEN 600 MG TABLET PO PRN (13:14)
[2019-12-03 16:09] VITALS: BP 138/82
[2019-12-03] MEDS: HALOPERIDOL 5 MG TABLET PO PRN (16:29)
[2019-12-03] MEDS: ZOLPIDEM TARTRATE 10 MG TABLET PO PRN (23:22)
[2019-12-04 00:12] VITALS: BP 119/87
[2019-12-04] MEDS: ACETAMINOPHEN 325 MG TABLET PO PRN ×2 (06:33→16:20)
[2019-12-04] MEDS: LORazepam 2 MG TABLET PO PRN ×2 (07:06→21:03)
[2019-12-04] MEDS: NICOTINE 21 MG/24 HOUR PATCH TD SCH (08:23)
[2019-12-04] MEDS: DIVALPROEX SODIUM 500 MG ER TABLET PO SCH ×2 (08:23→20:17)
[2019-12-04] MEDS: FluPHENAZine HCL 5 MG TABLET PO SCH ×2 (08:23→20:17)
[2019-12-04 08:26] VITALS: BP 105/63
[2019-12-04 16:14] VITALS: BP 116/84
[2019-12-05] MEDS: ZOLPIDEM TARTRATE 10 MG TABLET PO PRN (02:03)
[2019-12-05 02:15] VITALS: BP 100/60
[2019-12-05] MEDS: DIVALPROEX SODIUM 500 MG ER TABLET PO SCH ×2 (08:44→21:33)
[2019-12-05] MEDS: NICOTINE 21 MG/24 HOUR PATCH TD SCH (08:44)
[2019-12-05] MEDS: FluPHENAZine HCL 5 MG TABLET PO SCH ×2 (08:44→21:33)
[2019-12-05] MEDS: LORazepam 2 MG TABLET PO PRN (09:09)
[2019-12-05] MEDS: HALOPERIDOL 5 MG TABLET PO PRN (09:10)
[2019-12-05 09:49] VITALS: BP 124/70
[2019-12-05] MEDS: IBUPROFEN 600 MG TABLET PO PRN ×2 (09:49→16:26)
[2019-12-05 16:07] VITALS: BP 107/55
[2019-12-06] MEDS: ZOLPIDEM TARTRATE 10 MG TABLET PO PRN (02:44)
[2019-12-06 02:51] VITALS: BP 122/76
[2019-12-06] MEDS: FluPHENAZine HCL 5 MG TABLET PO SCH ×2 (08:12→20:41)
[2019-12-06] MEDS: NICOTINE 21 MG/24 HOUR PATCH TD SCH (08:12)
[2019-12-06] MEDS: DIVALPROEX SODIUM 500 MG ER TABLET PO SCH ×2 (08:13→20:41)
[2019-12-06] MEDS: IBUPROFEN 600 MG TABLET PO PRN ×2 (08:13→23:11)
[2019-12-06] MEDS: LORazepam 2 MG TABLET PO PRN (08:13)
[2019-12-06 08:18] VITALS: BP 119/78
[2019-12-06] MEDS: HALOPERIDOL 5 MG TABLET PO PRN (10:04)
[2019-12-06 16:03] VITALS: BP 114/72
[2019-12-07] MEDS: DIVALPROEX SODIUM 500 MG ER TABLET PO SCH ×2 (08:13→20:32)
[2019-12-07] MEDS: LORazepam 2 MG TABLET PO PRN ×2 (08:13→18:57)
[2019-12-07] MEDS: FluPHENAZine HCL 5 MG TABLET PO SCH ×2 (08:13→20:32)
[2019-12-07] MEDS: NICOTINE 21 MG/24 HOUR PATCH TD SCH (08:13)
[2019-12-07] MEDS ORDERED: MAG HYDROX/AL HYDROX/SIMETH 30 ML SUSP UDCUP PO PRN (10:30)
[2019-12-07 16:09] VITALS: BP 126/74
[2019-12-07] MEDS: HALOPERIDOL 5 MG TABLET PO PRN (18:14)
[2019-12-08 00:05] VITALS: BP 117/78
[2019-12-08] MEDS: NICOTINE 21 MG/24 HOUR PATCH TD SCH (08:02)
[2019-12-08] MEDS: DIVALPROEX SODIUM 500 MG ER TABLET PO SCH ×2 (08:02→20:37)
[2019-12-08] MEDS: FluPHENAZine HCL 5 MG TABLET PO SCH ×2 (08:02→20:37)
[2019-12-08 08:09] VITALS: BP 111/68
[2019-12-08 16:26] VITALS: BP 100/65
[2019-12-09 00:24] VITALS: BP 130/95
[2019-12-09] MEDS: ZOLPIDEM TARTRATE 10 MG TABLET PO PRN (01:32)
[2019-12-09] MEDS: LORazepam 2 MG TABLET PO PRN ×2 (08:06→16:17)
[2019-12-09] MEDS: FluPHENAZine HCL 5 MG TABLET PO SCH ×2 (08:06→20:29)
[2019-12-09] MEDS: DIVALPROEX SODIUM 500 MG ER TABLET PO SCH ×2 (08:06→20:29)
[2019-12-09 08:14] VITALS: BP 130/69
[2019-12-09] MEDS: NICOTINE 21 MG/24 HOUR PATCH TD SCH (08:17)
[2019-12-09] MEDS: IBUPROFEN 600 MG TABLET PO PRN (08:41)
[2019-12-09] MEDS: HALOPERIDOL 5 MG TABLET PO PRN (16:17)
[2019-12-10] MEDS: ZOLPIDEM TARTRATE 10 MG TABLET PO PRN ×2 (01:35→20:30)
[2019-12-10 05:45] VITALS: BP 128/78
[2019-12-10] MEDS: FluPHENAZine HCL 5 MG TABLET PO SCH ×2 (09:09→20:11)
[2019-12-10] MEDS: DIVALPROEX SODIUM 500 MG ER TABLET PO SCH ×2 (09:09→20:11)
[2019-12-10] MEDS: NICOTINE 21 MG/24 HOUR PATCH TD SCH (09:10)
[2019-12-10] MEDS: LORazepam 2 MG TABLET PO PRN ×2 (09:16→16:01)
[2019-12-10] MEDS: HALOPERIDOL 5 MG TABLET PO PRN (16:01)
[2019-12-10 16:22] VITALS: BP 124/74
[2019-12-10 16:38] VITALS: BP 124/74
[2019-12-10] MEDS: ACETAMINOPHEN 325 MG TABLET PO PRN (16:38)
[2019-12-11 06:19] VITALS: BP 111/70
[2019-12-11 06:50] VITALS: BP 118/74
[2019-12-11] MEDS: IBUPROFEN 600 MG TABLET PO PRN (06:59)
[2019-12-11] MEDS: LORazepam 2 MG TABLET PO PRN ×3 (06:59→16:48)
[2019-12-11 08:15] VITALS: BP 111/69
[2019-12-11] MEDS: DIVALPROEX SODIUM 500 MG ER TABLET PO SCH ×2 (08:34→20:17)
[2019-12-11] MEDS: FluPHENAZine HCL 5 MG TABLET PO SCH ×2 (08:34→20:17)
[2019-12-11] MEDS: NICOTINE 21 MG/24 HOUR PATCH TD SCH (08:36)
[2019-12-11 16:09] VITALS: BP 114/70
[2019-12-12 02:15] VITALS: BP 106/72
[2019-12-12] MEDS: ZOLPIDEM TARTRATE 10 MG TABLET PO PRN (02:23)
[2019-12-12] MEDS: IBUPROFEN 600 MG TABLET PO PRN ×2 (03:00→12:24)
[2019-12-12] MEDS: FluPHENAZine HCL 5 MG TABLET PO SCH ×2 (08:34→21:03)
[2019-12-12] MEDS: DIVALPROEX SODIUM 500 MG ER TABLET PO SCH ×2 (08:34→21:03)
[2019-12-12] MEDS: LORazepam 2 MG TABLET PO PRN (08:34)
[2019-12-12] MEDS: NICOTINE 21 MG/24 HOUR PATCH TD SCH (08:34)
[2019-12-12] MEDS: HALOPERIDOL 5 MG TABLET PO PRN (09:56)
[2019-12-12 12:24] VITALS: BP 110/74
[2019-12-12 16:25] VITALS: BP 101/61
[2019-12-13 02:12] VITALS: BP 104/73
[2019-12-13] MEDS: LORazepam 2 MG TABLET PO PRN ×2 (05:48→12:15)
[2019-12-13] MEDS: FluPHENAZine HCL 5 MG TABLET PO SCH ×2 (09:09→20:32)
[2019-12-13] MEDS: DIVALPROEX SODIUM 500 MG ER TABLET PO SCH ×2 (09:09→20:32)
[2019-12-13] MEDS: NICOTINE 21 MG/24 HOUR PATCH TD SCH (09:54)
[2019-12-13 12:53] VITALS: BP 103/61
[2019-12-13 16:11] VITALS: BP 108/68
[2019-12-13] MEDS: ZOLPIDEM TARTRATE 10 MG TABLET PO PRN (22:10)
[2019-12-14 01:14] VITALS: BP 102/68
[2019-12-14] MEDS: LORazepam 2 MG TABLET PO PRN ×2 (06:19→16:43)
[2019-12-14 08:06] VITALS: BP 119/74
[2019-12-14] MEDS: FluPHENAZine HCL 5 MG TABLET PO SCH ×2 (08:14→20:14)
[2019-12-14] MEDS: DIVALPROEX SODIUM 500 MG ER TABLET PO SCH ×2 (08:14→20:14)
[2019-12-14] MEDS: NICOTINE 21 MG/24 HOUR PATCH TD SCH (08:15)
[2019-12-14 16:06] VITALS: BP 114/70
[2019-12-14] MEDS: HALOPERIDOL 5 MG TABLET PO PRN (16:43)
[2019-12-14] MEDS: IBUPROFEN 600 MG TABLET PO PRN (17:52)
[2019-12-15 03:52] VITALS: BP 110/66
[2019-12-15] MEDS: LORazepam 2 MG TABLET PO PRN (03:56)
[2019-12-15] MEDS: NICOTINE 21 MG/24 HOUR PATCH TD SCH (09:45)
[2019-12-15] MEDS: DIVALPROEX SODIUM 500 MG ER TABLET PO SCH ×2 (09:47→20:16)
[2019-12-15] MEDS: FluPHENAZine HCL 5 MG TABLET PO SCH ×2 (09:47→20:16)
[2019-12-15 16:32] VITALS: BP 118/84
[2019-12-16 03:47] VITALS: BP 104/65
[2019-12-16] MEDS: LORazepam 2 MG TABLET PO PRN (03:47)
[2019-12-16 08:23] VITALS: BP 122/71
[2019-12-16] MEDS: FluPHENAZine HCL 5 MG TABLET PO SCH ×2 (08:34→20:08)
[2019-12-16] MEDS: DIVALPROEX SODIUM 500 MG ER TABLET PO SCH ×2 (08:34→20:08)
[2019-12-16] MEDS: NICOTINE 21 MG/24 HOUR PATCH TD SCH (08:35)
[2019-12-16 16:17] VITALS: BP 117/80
[2019-12-16 20:28] VITALS: BP 123/76
[2019-12-16] MEDS: HALOPERIDOL 5 MG TABLET PO PRN (20:28)
[2019-12-16] MEDS: IBUPROFEN 600 MG TABLET PO PRN (20:28)
[2019-12-17 03:05] VITALS: BP 110/68
[2019-12-17] MEDS: LORazepam 2 MG TABLET PO PRN ×2 (03:08→18:45)
[2019-12-17] MEDS: HALOPERIDOL 5 MG TABLET PO PRN ×2 (03:08→20:33)
[2019-12-17] MEDS: FluPHENAZine HCL 5 MG TABLET PO SCH ×2 (08:18→20:33)
[2019-12-17] MEDS: DIVALPROEX SODIUM 500 MG ER TABLET PO SCH ×2 (08:18→20:33)
[2019-12-17] MEDS: NICOTINE 21 MG/24 HOUR PATCH TD SCH (09:00)
[2019-12-17 09:30] VITALS: BP 117/74
[2019-12-17 18:46] VITALS: BP 125/86
[2019-12-17] MEDS: IBUPROFEN 600 MG TABLET PO PRN (18:46)
[2019-12-18] MEDS: NICOTINE 21 MG/24 HOUR PATCH TD SCH (08:55)
[2019-12-18] MEDS: FluPHENAZine HCL 5 MG TABLET PO SCH ×2 (08:55→20:41)
[2019-12-18] MEDS: DIVALPROEX SODIUM 500 MG ER TABLET PO SCH ×2 (08:55→20:41)
[2019-12-18] MEDS: ACETAMINOPHEN 325 MG TABLET PO PRN (10:16)
[2019-12-18 10:19] VITALS: BP 123/82
[2019-12-18 16:16] VITALS: BP 120/53
[2019-12-18] MEDS: IBUPROFEN 600 MG TABLET PO PRN (18:15)
[2019-12-18 18:16] VITALS: BP 130/75
[2019-12-19 02:09] VITALS: BP 126/88
[2019-12-19] MEDS: NICOTINE 21 MG/24 HOUR PATCH TD SCH (08:15)
[2019-12-19] MEDS: FluPHENAZine HCL 5 MG TABLET PO SCH ×2 (08:16→20:35)
[2019-12-19] MEDS: DIVALPROEX SODIUM 500 MG ER TABLET PO SCH ×2 (08:16→20:35)
[2019-12-19 08:22] VITALS: BP 108/61
[2019-12-19 16:34] VITALS: BP 143/68
[2019-12-19] MEDS: LORazepam 2 MG TABLET PO PRN (18:29)
[2019-12-19] MEDS: IBUPROFEN 600 MG TABLET PO PRN (18:29)
[2019-12-19] MEDS: HALOPERIDOL 5 MG TABLET PO PRN (18:29)
[2019-12-19] MEDS: ZOLPIDEM TARTRATE 10 MG TABLET PO PRN (20:35)
[2019-12-20 01:55] VITALS: BP 132/73
[2019-12-20 08:11] VITALS: BP 109/62
[2019-12-20] MEDS: DIVALPROEX SODIUM 500 MG ER TABLET PO SCH ×2 (08:53→20:58)
[2019-12-20] MEDS: FluPHENAZine HCL 5 MG TABLET PO SCH ×2 (08:53→20:58)
[2019-12-20] MEDS: NICOTINE 21 MG/24 HOUR PATCH TD SCH (08:53)
[2019-12-20] MEDS: LORazepam 2 MG TABLET PO PRN (15:48)
[2019-12-20] MEDS: IBUPROFEN 600 MG TABLET PO PRN (15:48)
[2019-12-20] MEDS: HALOPERIDOL 5 MG TABLET PO PRN (15:48)
[2019-12-20 17:04] VITALS: BP 131/81
[2019-12-20] MEDS: ZOLPIDEM TARTRATE 10 MG TABLET PO PRN (20:58)
[2019-12-21] MEDS: LORazepam 2 MG TABLET PO PRN ×3 (03:07→17:32)
[2019-12-21] MEDS: HALOPERIDOL 5 MG TABLET PO PRN ×3 (03:07→17:32)
[2019-12-21 03:53] VITALS: BP 128/78
[2019-12-21 08:11] VITALS: BP 104/66
[2019-12-21] MEDS: FluPHENAZine HCL 5 MG TABLET PO SCH ×2 (09:32→20:52)
[2019-12-21] MEDS: DIVALPROEX SODIUM 500 MG ER TABLET PO SCH ×2 (09:32→20:52)
[2019-12-21] MEDS: NICOTINE 21 MG/24 HOUR PATCH TD SCH (09:32)
[2019-12-21 10:15] VITALS: BP 118/78
[2019-12-21 16:04] VITALS: BP 110/64
[2019-12-21] MEDS: IBUPROFEN 600 MG TABLET PO PRN (16:37)
[2019-12-21] MEDS: ZOLPIDEM TARTRATE 10 MG TABLET PO PRN (20:52)
[2019-12-22 04:34] VITALS: BP 111/74
[2019-12-22] MEDS: NICOTINE 21 MG/24 HOUR PATCH TD SCH (08:12)
[2019-12-22] MEDS: DIVALPROEX SODIUM 500 MG ER TABLET PO SCH ×2 (08:12→20:14)
[2019-12-22] MEDS: FluPHENAZine HCL 5 MG TABLET PO SCH ×2 (08:12→20:14)
[2019-12-22 08:18] VITALS: BP 112/70
[2019-12-22] MEDS: IBUPROFEN 600 MG TABLET PO PRN ×2 (08:18→18:17)
[2019-12-22] MEDS: LORazepam 2 MG TABLET PO PRN ×2 (08:19→18:16)
[2019-12-22] MEDS: HALOPERIDOL 5 MG TABLET PO PRN ×2 (09:49→18:16)
[2019-12-22 17:52] VITALS: BP 106/58
[2019-12-22] MEDS: ZOLPIDEM TARTRATE 10 MG TABLET PO PRN (21:44)
[2019-12-23 05:10] VITALS: BP 112/65
[2019-12-23 08:19] VITALS: BP 116/69
[2019-12-23] MEDS: NICOTINE 21 MG/24 HOUR PATCH TD SCH (08:36)
[2019-12-23] MEDS: DIVALPROEX SODIUM 500 MG ER TABLET PO SCH ×2 (08:36→20:59)
[2019-12-23] MEDS: FluPHENAZine HCL 5 MG TABLET PO SCH ×2 (08:36→20:59)
[2019-12-23 16:14] VITALS: BP 119/74
[2019-12-23] MEDS: IBUPROFEN 600 MG TABLET PO PRN (17:59)
[2019-12-23] MEDS: LORazepam 2 MG TABLET PO PRN (17:59)
[2019-12-23] MEDS: HALOPERIDOL 5 MG TABLET PO PRN (17:59)
[2019-12-23 18:00] VITALS: BP 115/76
[2019-12-23] MEDS: ZOLPIDEM TARTRATE 10 MG TABLET PO PRN (20:59)
[2019-12-24 08:14] VITALS: BP 125/72
[2019-12-24] MEDS: FluPHENAZine HCL 5 MG TABLET PO SCH ×2 (09:18→21:10)
[2019-12-24] MEDS: DIVALPROEX SODIUM 500 MG ER TABLET PO SCH ×2 (09:18→21:10)
[2019-12-24] MEDS: NICOTINE 21 MG/24 HOUR PATCH TD SCH (09:19)
[2019-12-24 16:47] VITALS: BP 112/66
[2019-12-24] MEDS: ZOLPIDEM TARTRATE 10 MG TABLET PO PRN (23:08)
[2019-12-25 06:36] VITALS: BP 131/86
[2019-12-25] MEDS: NICOTINE 21 MG/24 HOUR PATCH TD SCH (08:08)
[2019-12-25] MEDS: FluPHENAZine HCL 5 MG TABLET PO SCH ×2 (08:08→20:23)
[2019-12-25] MEDS: LORazepam 2 MG TABLET PO PRN ×2 (08:08→19:45)
[2019-12-25] MEDS: IBUPROFEN 600 MG TABLET PO PRN ×2 (08:08→16:37)
[2019-12-25] MEDS: DIVALPROEX SODIUM 500 MG ER TABLET PO SCH ×2 (08:08→20:23)
[2019-12-25 08:23] VITALS: BP 120/74
[2019-12-25] MEDS: HALOPERIDOL 5 MG TABLET PO PRN ×2 (09:17→19:45)
[2019-12-25 16:13] VITALS: BP 130/74
[2019-12-25] MEDS: ZOLPIDEM TARTRATE 10 MG TABLET PO PRN (20:23)
[2019-12-26 01:51] VITALS: BP 126/86
[2019-12-26] MEDS: NICOTINE 21 MG/24 HOUR PATCH TD SCH (08:12)
[2019-12-26] MEDS: FluPHENAZine HCL 5 MG TABLET PO SCH (08:12)
[2019-12-26] MEDS: DIVALPROEX SODIUM 500 MG ER TABLET PO SCH (08:12)
[2019-12-26 08:14] VITALS: BP 119/74
[2019-12-26] MEDS: IBUPROFEN 600 MG TABLET PO PRN (09:35)
== END 2019-12-26 18:44 | disposition home or self-care (01) | DRG 885 ==
LOC: EMS 00:57 → B3A 02:41
PROVIDERS: ADMIT Psychiatry & Neurology Psychiatry; ATTEND Psychiatry & Neurology Child & Adolescent Psychiatry
DX: F20.9 Schizophrenia, unspecified (principal); E87.0 Hyperosmolality and hypernatremia; F12.90 Cannabis use, unspecified, uncomplicated; E78.5 Hyperlipidemia, unspecified; E78.00 Pure hypercholesterolemia, unspecified; E03.9 Hypothyroidism, unspecified; D64.9 Anemia, unspecified; F43.10 Post-traumatic stress disorder, unspecified; I10 Essential (primary) hypertension; Z59.0 Homelessness; Z87.891 Personal history of nicotine dependence; Z03.818 Encounter for observation for suspected exposure to other biological agents ruled out
CPT/HCPCS: 83036; 87081; G0480; J1200; J1630; J2060